=== PATIENT | female | born 1950 | race Caucasian/White ===

== ENCOUNTER 2017-12-30 17:23 | Inpatient (IN) | payer OTHER ==
[~2017-12-30] VITALS: Ht 152.4 cm; Wt 80.7 kg
[2017-12-30 17:32] VITALS: Ht 152.4 cm; Wt 80.7 kg
[2017-12-30 18:05] LABS: BASOPHIL % 0.4 % (0-2); PLATELET COUNT 258 x10^3mcL (130-400); RED CELL DISTRIBUTION WIDTH 13.4 % (11.5-14.5)
[2017-12-30 18:15] LABS: CALCIUM 9.3 mg/dL (8.5-10.1); CARBON DIOXIDE 27.7 mmol/L (21-32); CHLORIDE SERUM 102 mmol/L (98-107); CREATININE SERUM 0.8 mg/dL (0.6-1.0); GFR1 > 60 mL/min; GLUCOSE SERUM 132 mg/dL (74-106); POTASSIUM SERUM 4.3 mmol/L (3.5-5.1); SODIUM SERUM 141 mmol/L (136-145)
[2017-12-30 18:20] LABS: ALBUMIN 3.9 g/dL (3.4-5.0); ALKALINE PHOSPHATASE 112 U/L (46-116); ALT/SGPT 28 U/L (14-59); AST/SGOT 20 U/L (15-37); BILIRUBIN TOTAL 0.6 mg/dL (0.20-1.00); LIPASE 96 IU/L (73-393); TOTAL PROTEIN, SERUM 8.1 g/dL (6.4-8.2)
[2017-12-30 20:31] LABS: MAGNESIUM 2.2 mg/dL (1.8-2.4); PHOSPHOROUS 2.9 mg/dL (2.5-4.9)
[2017-12-30 20:35] LABS: CHOLESTEROL/HDL RATIO 4.9
[2017-12-30 20:39] LABS: T3 TOTAL 1.19 ng/mL
[2017-12-30 20:57] LABS: FREE T4 0.99 ng/dL (0.76-1.46); FREE THYROXINE INDEX 3.3 ug/dL (1.4-4.5); T4(THYROXINE) 9.3 ug/dL (4.7-13.3)
[2017-12-30 21:03] VITALS: BP 118/86
[2017-12-31 05:25] VITALS: BP 108/65
[2017-12-31 06:17] LABS: CALCIUM 8.5 mg/dL (8.5-10.1); CARBON DIOXIDE 28.2 mmol/L (21-32); CHLORIDE SERUM 109 mmol/L (98-107); CREATININE SERUM 0.9 mg/dL (0.6-1.0); GFR1 > 60 mL/min; GLUCOSE SERUM 102 mg/dL (74-106); POTASSIUM SERUM 4.4 mmol/L (3.5-5.1); SODIUM SERUM 145 mmol/L (136-145)
[2017-12-31 06:31] LABS: BASOPHIL % 0.7 % (0-2); PLATELET COUNT 236 x10^3mcL (130-400); RED CELL DISTRIBUTION WIDTH 13.6 % (11.5-14.5)
[2017-12-31 07:02] LABS: UA SPECIFIC GRAVITY 1.025 (1.005-1.035); microscopic required? YES; urine erythrocyte NEGATIVE (NEGATIVE)
[2017-12-31 07:18] LABS: AMPHETAMINE QUAL UR NONE DETECTED (See below)
[2017-12-31 08:17] VITALS: BP 105/55
[2017-12-31 12:17] VITALS: BP 117/72
[2017-12-31 16:38] VITALS: BP 109/71
[2017-12-31] MEDS ORDERED: METOPROLOL SUCC25 M2 PO (17:04)
[2017-12-31] MEDS ORDERED: ECO81 PO (17:05)
[2017-12-31] MEDS ORDERED: ZES5 PO (17:05)
[2017-12-31] MEDS ORDERED: ATIVAN2 MG PO ×2 (17:07→17:13)
[2017-12-31 17:14] VITALS: BP 109/71
== END 2017-12-31 18:23 | disposition home health service (06) | DRG 281 ==
LOC: ED 17:23 → DU 19:58
PROVIDERS: Emergency Medicine; Internal Medicine
DX: I21.4 Non-ST elevation (NSTEMI) myocardial infarction (principal); I51.81 Takotsubo syndrome; I25.10 Atherosclerotic heart disease of native coronary artery without angina pectoris; F41.9 Anxiety disorder, unspecified; K21.9 Gastro-esophageal reflux disease without esophagitis; E78.5 Hyperlipidemia, unspecified; K57.90 Diverticulosis of intestine, part unspecified, without perforation or abscess without bleeding; Z68.34 Body mass index [BMI] 34.0-34.9, adult
CPT/HCPCS: 83880; 84439; J1650; J1885; J2060; J2405; J7030; Q0092